=== PATIENT | female | born 1950 | race Caucasian/White ===

== ENCOUNTER 2017-05-24 13:41 | Emergency (ER) | payer MEDICARE, OTHER ==
[2017-05-24 15:03] LABS: HEMOGLOBIN 12.8 gm/dl (12.3-15.3); RED BLOOD COUNT 4.45 M/UL (4.00-5.10); WHITE BLOOD COUNT 7.9 K/UL (4.5-11.0)
[2017-05-24 15:28] LABS: BUN/CREATININE RATIO 15 (0-10)
== END 2017-05-24 16:20 | disposition home or self-care (01) ==
LOC: ER1 13:41
PROVIDERS: Family Medicine
DX: R05 Cough (principal); Z88.2 Allergy status to sulfonamides; Z88.1 Allergy status to other antibiotic agents; Z88.8 Allergy status to other drugs, medicaments and biological substances
CPT/HCPCS: 36415; 71020; 80048; 83880; 85025; 96372; 99284; J1100